=== PATIENT | male | born 1970 | race Two or more races ===

== ENCOUNTER 2023-02-25 21:51 | Observation (INO) | payer OTHER ==
[2023-02-25 22:05] VITALS: BMI 25.0
[2023-02-25] MEDS ORDERED: ACETAMINOPHEN 500 MG TABLET (FP) PO ONE (22:42)
[2023-02-26] MEDS ORDERED: KETOROLAC TROMETHAMINE 15 MG/ML VIAL IM ONE (08:04)
[2023-02-26] MEDS ORDERED: METHOCARBAMOL 750 MG TABLET PO SCH (09:00)
[2023-02-26] MEDS ORDERED: METHOCARBAMOL 500 MG TABLET ONE ×3 (09:09→14:43)
[2023-02-26] MEDS ORDERED: KETOROLAC TROMETHAMINE 15 MG/ML VIAL ONE (09:10)
[2023-02-26] MEDS: METHOCARBAMOL 500 MG TABLET PO SCH ×2 (09:10→14:47)
[2023-02-26 09:24] VITALS: RESP 18
[2023-02-26 11:53] LABS: BASO % 0.5 % (0-2.0); EOS % 0.8 % (0-4.5); HEMATOCRIT 42.3 % (35.4-49); HEMOGLOBIN 14.2 GM/dL (11.7-16.9); LYMPH % 28.7 % (8-40); MCHC 33.5 g/dl (32.0-35.9); MEAN CELL VOLUME 89.7 fl (80-96); MEAN PLT VOLUME 9.2 fl (7.5-11.1); MONO % 6.8 % (3.8-10.2); NEUT % 63.2 % (42.8-82.8); PLATELET COUNT 213 10^3/uL (134-434); RBC 4.72 M/mm3 (4.00-5.60); RDW 12.9 % (11.9-15.9); WHITE BLOOD COUNT 4.8 K/mm3 (4.0-10.0)
[2023-02-26 11:58] LABS: POTASSIUM 4.1 mmol/L (3.5-5.1)
[2023-02-26 12:01] LABS: CALCIUM 9.3 mg/dL (8.5-10.1)
[2023-02-26 12:02] LABS: ALBUMIN 3.8 g/dl (3.4-5.0); BLOOD UREA NITROGEN 12.4 mg/dL (7-18); MAGNESIUM 2.4 mg/dL (1.8-2.4)
[2023-02-26 12:04] LABS: CREATININE 0.8 mg/dL (0.55-1.3)
[2023-02-26 12:06] LABS: BILIRUBIN,TOTAL 0.7 mg/dL (0.2-1); TOT PROT 7.2 g/dl (6.4-8.2)
[2023-02-26 17:11] VITALS: BP 133/88; PULSE 83; TEMP 98
== END 2023-02-26 17:08 | disposition home or self-care (01) ==
LOC: JER 21:51 → JERBED 02-26 02:00
PROVIDERS: ADMIT Internal Medicine; ATTEND Internal Medicine
PROC: 3E0233Z Introduction of Anti-inflammatory into Muscle, Percutaneous Approach (ICD-10-PCS; principal; 2023-02-26)
DX: S09.90XA Unspecified injury of head, initial encounter (principal); M79.604 Pain in right leg; M54.50 Low back pain, unspecified; M54.2 Cervicalgia; V43.52XA Car driver injured in collision with other type car in traffic accident, initial encounter; Y93.89 Activity, other specified; Y92.410 Unspecified street and highway as the place of occurrence of the external cause; Z90.49 Acquired absence of other specified parts of digestive tract
CPT/HCPCS: 36415; 70450-TC; 72125-TC; 72128-TC; 72131-TC; 80053; 83735; 85025; 99285-25; G0378